=== PATIENT | male | born 1975 | race Caucasian/White ===

== ENCOUNTER 2021-08-01 18:52 | Emergency (ER) | payer MEDICAID ==
[~2021-08-01] VITALS: Ht 180.3 cm; Wt 87.5 kg
[2021-08-01 18:58] VITALS: BP 162/95
[2021-08-01] MEDS ORDERED: KETOROLAC 30 MG/ML VIAL IM ONE (19:20)
--- NOTE | 2021-08-01 20:03 | NUR ---
PT AMBULATED TO BED #3
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
[2021-08-02] MEDS ORDERED: CLIN300C52 PO (00:23)
--- NOTE | 2021-08-02 00:43 | NUR ---
PT DENIES ANY PAIN AT THIS TIME.
[2021-08-02 00:46] VITALS: BP 120/82
--- NOTE | 2021-08-02 00:46 | NUR ---
Patient discharged with v/s stable. Written and verbal after care instructions given and explained. Patient alert, oriented and verbalized understanding of instructions. Ambulatory with steady gait. All questions addressed prior to discharge. ID band removed. Patient advised to follow up with PMD. Rx of CLINDAMYCIN given. Patient educated on indication of medication including possible reaction and side effects. Opportunity to ask questions provided and answered.
== END 2021-08-02 00:46 | disposition home or self-care (01) ==
LOC: MED 18:52
DX: K40.90 Unilateral inguinal hernia, without obstruction or gangrene, not specified as recurrent (principal); I10 Essential (primary) hypertension; Z98.890 Other specified postprocedural states
CPT/HCPCS: 74176; 96372; 99284; J1885; Q0163

== ENCOUNTER 2021-12-26 21:32 | Emergency (ER) | payer MEDICAID ==
[~2021-12-26 21:32] MED LIST: CLIN300C52 PO
--- NOTE | 2021-12-26 23:50 | NUR ---
UNABLE TO LOCATE PT
--- NOTE | 2021-12-27 00:15 | NUR ---
UNABLE TO LOCATE PT
--- NOTE | 2021-12-27 01:31 | NUR ---
UNABLE TO LOCATE PT
--- NOTE | 2021-12-27 01:38 | NUR ---
PATIENT LEFT WITHOUT BEING SEEN BY DR. ERICKSON. NO FURTHER CARE PROVIDED FOR PATIENT.
[2022-01-06] MEDS ORDERED: CLIN60LO TP (19:41)
[2022-01-06] MEDS ORDERED: CLIN150C1 PO (19:41)
== END 2021-12-26 23:00 | disposition left against medical advice (07) ==
LOC: MED 21:32
DX: R68.89 Other general symptoms and signs (principal); Z53.21 Procedure and treatment not carried out due to patient leaving prior to being seen by health care provider

== ENCOUNTER 2022-01-01 00:39 | Emergency (ER) | payer MEDICAID ==
[~2022-01-01] VITALS: Ht 180.3 cm; Wt 85.7 kg
[2022-01-01 00:43] VITALS: BP 132/77
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
--- NOTE | 2022-01-01 01:24 | NUR ---
er at bedside
[2022-01-01] MEDS ORDERED: CLINDAMYCIN 150 MG CAP PO ONE (01:40)
[2022-01-01] MEDS ORDERED: CLIN150C1 PO (01:47)
[2022-01-01] MEDS ORDERED: CLIN60LO TP (01:47)
[2022-01-01 02:13] VITALS: BP 132/77
--- NOTE | 2022-01-01 02:13 | NUR ---
Patient discharged with v/s stable. Written and verbal after care instructions given and explained. Patient alert, oriented and verbalized understanding of instructions. Ambulatory with steady gait. All questions addressed prior to discharge. ID band removed. Patient advised to follow up with PMD. Rx of cleocin and clindamycin/niacinamide given. Patient educated on indication of medication including possible reaction and side effects. Opportunity to ask questions provided and answered.
== END 2022-01-01 02:13 | disposition home or self-care (01) ==
LOC: MED 00:39
DX: L73.2 Hidradenitis suppurativa (principal); Z79.899 Other long term (current) drug therapy
CPT/HCPCS: 99283

== ENCOUNTER 2022-06-14 06:05 | Emergency (ER) | payer MEDICAID ==
[~2022-06-14] VITALS: Ht 180.3 cm; Wt 81.6 kg
[~2022-06-14 06:05] MED LIST changes: +CLIN150C1 PO; -CLIN300C52 PO; +CLIN60LO TP
[2022-06-14 06:13] VITALS: BP 126/81
[2022-06-14] MEDS ORDERED: DOXY-565 (06:24)
[2022-06-14] MEDS ORDERED: [UNRECOGNIZED DRUG - CODE] (06:24)
--- NOTE | 2022-06-14 06:30 | NUR ---
PT TAKEN TO ER BED 8
[2022-06-14] MEDS ORDERED: MECLIZINE 25 MG TAB PO ONE (06:35)
--- NOTE | 2022-06-14 06:47 | NUR ---
BLOOD COLLECTED AND HANDED TO LAB
--- NOTE | 2022-06-14 06:48 | NUR ---
PATIETN MEDICATED PER ORDERS. TOLERATED WELL.
--- NOTE | 2022-06-14 06:48 | NUR ---
Note undone in EDM - 06/14/22 at 0706 by RUTH 47/M BIB SELF C/C DIZZINESS XYESTERDAY. PATIENT REPORTS THAT HE WENT TO SLEEP AND WOKE UP THIS MORNING TO GET READY FOR WORK AND IS STILL EXTREMELY DIZZY. PATIENT DENIES CP/SOB/N/V/D/C. PATIENT PLACED ON BEDSIDE MONITOR. PATIENT AAOX4 AND AMBULATORY WITH STEADY GAIT AT THIS TIME. ROM INTACT IN LOWER AND UPPER EXTREMITIES. NO DEFICITS NOTES. SPEECH CLEAR. BED LOW AND LOCKED. KAUSHAL SIDE RAILS UP FOR SAFETY. ALL NEEDS MET. DENIES PMHX, RX, ALLERGIES
--- NOTE | 2022-06-14 06:48 | NUR ---
47/M BIB SELF C/C DIZZINESS XYESTERDAY. PATIENT REPORTS THAT HE WENT TO SLEEP AND WOKE UP THIS MORNING TO GET READY FOR WORK AND IS STILL EXTREMELY DIZZY. PATIENT DENIES CP/SOB/N/V/D/C. PATIENT PLACED ON BEDSIDE MONITOR. PATIENT AAOX4 AND W/C TO BED 8. PATIENT FELT LIKE THE ROOM WAS "SPINNING". ROM INTACT IN LOWER AND UPPER EXTREMITIES. NO DEFICITS NOTES. SPEECH CLEAR. BED LOW AND LOCKED. KAUSHAL SIDE RAILS UP FOR SAFETY. ALL NEEDS MET. DENIES PMHX, RX, ALLERGIES
[2022-06-14 06:57] LABS: BASOPHILS # (AUTO) 0.1 K/uL (0.00-0.22); BASOPHILS % (AUTO) 0.9 % (0.0-2.0); EOSINOPHILS # (AUTO) 0.4 K/uL (0-0.4); EOSINOPHILS % (AUTO) 4.8 % (0.0-4.0); HEMATOCRIT 44.6 % (36-52); HEMOGLOBIN 15.2 g/dL (12.0-18.0); LYMPHOCYTES # (AUTO) 2.7 K/uL (2.0-11.5); LYMPHOCYTES % (AUTO) 33.6 % (20.5-51.1); MEAN CORPUSCULAR HEMOGLOBIN 31 pg (27-31); MEAN CORPUSCULAR HGB CONC 34 g/dL (33-37); MEAN CORPUSCULAR VOLUME 90.4 fL (80-94); MONOCYTES # (AUTO) 0.6 K/uL (0.8-1.0); MONOCYTES % (AUTO) 7.1 % (1.7-9.3); NEUTROPHILS # (AUTO) 4.2 K/uL (1.8-7.7); NEUTROPHILS % (AUTO) 53.6 % (42.2-75.2); PLATELET COUNT (AUTO) 209 K/uL (140-450); RED BLOOD CELL COUNT(AUTO) 4.93 MIL/uL (4.20-6.10); RED CELL DISTRIBUTION WIDTH 13.7 % (11.6-13.7); WHITE BLOOD COUNT (AUTO) 7.9 K/uL (4.8-10.8)
--- NOTE | 2022-06-14 07:06 | NUR ---
47YR OLD MALE BIB SELF C/O DIZZINESS X 1DAY. DENIES N/V/D. DENIES SOB CP OR PAIN. PT IS A&OX4. SKIN WARM AND DRY. ON MONITOR EKG DONE. XRAY AT BEDSIDE . NKDA NO MED HX
[2022-06-14 07:12] LABS: ALBUMIN 3.4 g/dL (3.4-5.0); ANION GAP 14.4 (8-16); ASPARTATE AMINOTRANSFERASE 25 U/L (15-37); CARBON DIOXIDE 25.3 mmol/L (21-32); CHLORIDE 104 mmol/L (98-107); CREATININE 0.9 mg/dL (0.6-1.3); GFR ARICAN-AMERICAN 115 mL/min (>90); GLUCOSE 108 mg/dL (74-106); POTASSIUM 3.7 mmol/L (3.5-5.1); SODIUM SERUM 140 mmol/L (136-145); TOTAL BILIRUBIN 0.2 mg/dL (0.0-1.0); UREA NITROGEN, BLOOD 18 mg/dL (7-18)
--- NOTE | 2022-06-14 07:30 | NUR ---
REPORT RECEIVED FROM HAILEY WILBURN. ASSUMED CARE AT THIS TIME
[2022-06-14] MEDS ORDERED: MECL-303 PO (07:43)
--- NOTE | 2022-06-14 07:45 | NUR ---
pt at rest w/ eyes closed .denies pain at this time
--- NOTE | 2022-06-14 08:20 | NUR ---
IV removed, catheter intact and site benign. Applied folded 4x4 gauze and tape to stop bleeding.
[2022-06-14 08:22] VITALS: BP 122/82
--- NOTE | 2022-06-14 08:22 | NUR ---
Patient discharged with v/s stable. Written and verbal after care instructions FOR DIZZINESS given and explained. Patient alert, oriented and verbalized understanding of instructions. Ambulatory with steady gait. All questions addressed prior to discharge. ID band removed. Patient advised to follow up with PMD. Rx of ANTIVERT given. Opportunity to ask questions provided and answered.
--- NOTE | 2022-06-14 08:35 | NUR ---
The patient's care was reviewed and supervised by ED Agency Nurse 9, RN, RN.
== END 2022-06-14 08:22 | disposition home or self-care (01) ==
LOC: MED 06:05
DX: R42 Dizziness and giddiness (principal)
CPT/HCPCS: 36415; 71045; 80053; 84484; 85025; 93005; 99285; J8597; Q0092